=== PATIENT | male | born 2000 | race Two or more races ===

== ENCOUNTER 2020-11-22 04:55 | Emergency (ER) | payer SELFPAY ==
[~2020-11-22] VITALS: Ht 170.2 cm; Wt 95.3 kg
[2020-11-22] MEDS ORDERED: cefTRIAXone SOD 1,000 MG VL IM ONE (07:15)
[2020-11-22 07:31] VITALS: BP 114/81
== END 2020-11-22 07:41 | disposition home or self-care (01) ==
LOC: ER 04:55
DX: J03.80 Acute tonsillitis due to other specified organisms (principal); F17.210 Nicotine dependence, cigarettes, uncomplicated
CPT/HCPCS: 96372; 99283; J0696

== ENCOUNTER 2020-12-29 05:23 | Emergency (ER) | payer SELFPAY ==
[~2020-12-29] VITALS: Ht 170.2 cm; Wt 86.2 kg
[2020-12-29 06:41] LABS: Basophils # (auto) 0 10 ^3/uL (0-0.2); Basophils % (auto) 0.3 % (0.0-2.0); Eosinophils # (auto) 0 10 ^3/uL (0-0.8); Eosinophils % (auto) 0.6 % (0.0-7.0); Hematocrit 44.1 % (41.0-53.0); Hemoglobin 14.5 g/dL (13.5-17.5); Lymphocytes # (auto) 2.4 10 ^3/uL (0.4-5.4); Lymphocytes % (auto) 30.5 % (10.0-50.0); Mean Corpuscular Hemoglobin 29.6 pg (28.0-32.0); Mean Corpuscular Hgb Conc. 32.8 g/dL (32.0-36.0); Mean Corpuscular Volume 90.3 fL (80.0-100.0); Monocytes # (auto) 0.6 10 ^3/uL (0-1.3); Monocytes % (auto) 7.4 % (0.0-12.0); Neutrophils # (auto) 4.8 10 ^3/uL (1.6-8.6); Neutrophils % (auto) 61.2 % (37.0-80.0); Nucleated Red Blood Cells % 0.2 %; Red Blood Cells 4.88 10^6/uL (4.5-5.90); Red Cell Distribution Width 13.1 % (11.8-14.3); White Blood Cell 7.9 10^3/uL (4.4-10.8)
[2020-12-29 06:58] LABS: Potassium 4.1 mmol/L (3.5-5.1)
[2020-12-29 07:10] LABS: Albumin 3.8 g/dL (3.4-5.0); BUN/Creatinine Ratio 11.8; Bilirubin, Total 0.2 mg/dL (0.2-1.0); Calcium 9.7 mg/dL (8.5-10.1); Total Protein 8.1 g/dL (6.4-8.2)
[2020-12-29 07:40] VITALS: BP 123/70
== END 2020-12-29 07:42 | disposition home or self-care (01) ==
LOC: ER 05:23
DX: K52.1 Toxic gastroenteritis and colitis (principal); F17.210 Nicotine dependence, cigarettes, uncomplicated
CPT/HCPCS: 36415; 80053; 83690; 85025